=== PATIENT | male | born 1965 ===

== ENCOUNTER → 2022-12-27 | Day surgery (SDC) | payer OTHER ==
[~2022-12-27] VITALS: Ht 182.9 cm; Wt 77.1 kg
[~2022-12-27] MED LIST: ATORVASTATIN CA10 MG PO; TORADOL PO; VITAMIN D1000 UNI2 PO
[2022-12-27 10:48] VITALS: BP 140/87
== END | disposition home or self-care (01) | DRG 352 ==
LOC: ORM 11-29 08:00
PROVIDERS: ATTEND Surgery
PROC: 0YU50JZ Supplement Right Inguinal Region with Synthetic Substitute, Open Approach (ICD-10-PCS; principal; 2022-12-27)
DX: K40.90 Unilateral inguinal hernia, without obstruction or gangrene, not specified as recurrent (principal)
CPT/HCPCS: C9290; J0131; J0690